=== PATIENT | female | born 1935 | race Caucasian/White ===

== ENCOUNTER 2018-01-28 15:30 | Emergency (ER) | payer MEDICARE, MEDICAID ==
[2018-01-28] MEDS: ALBUTEROL 0.083% (NEB) 2.5 MG/3 ML AMP NEB (16:06)
[2018-01-28] MEDS: IPRATROPIUM (NEB) 0.5 MG/2.5 ML AMP NEB (16:06)
[2018-01-28 16:09] LABS: ADD MAN DIFF? NO
[2018-01-28 16:13] LABS: BASOPHILS % 0.2 % (0.0-2.0); EOSINOPHILS # 0.1 10^3/ul (0.0-0.5); EOSINOPHILS % 0.8 % (0.0-7.0); HEMATOCRIT 34.5 % (37.0-47.0); HEMOGLOBIN 11.1 g/dl (12.0-16.0); LYMPHOCYTES % 21.2 % (15.0-51.0); MEAN CORPUSCULAR HEMOGLOBIN 27.2 pg (29.0-33.0); MEAN CORPUSCULAR HGB CONC 32.2 g/dl (32.0-37.0); MEAN CORPUSCULAR VOLUME 84.6 fl (82.0-101.0); MEAN PLATELET VOLUME 10.7 fl (7.4-10.4); MONOCYTE # 0.9 10^3/ul (0.3-0.9); MONOCYTES % 9.2 % (0.0-11.0); NEUTROPHIL # 6.5 10^3/ul (1.6-7.5); NEUTROPHILS % 68.4 % (39.0-77.0); PLATELET COUNT 277 10^3/UL (140-415); RED BLOOD COUNT 4.08 10^6/ul (4.20-5.40); RED CELL DISTRIBUTION WIDTH 14.1 % (11.5-14.5)
[2018-01-28 16:13] LABS: WHITE BLOOD COUNT 9.5 10^3/ul (4.8-10.8)
[2018-01-28 16:35] LABS: ANION GAP 17 (8-16); BLOOD UREA NITROGEN 23 mg/dl (7-20); CARBON DIOXIDE 25 mmol/L (21-31); CHLORIDE 107 mmol/L (97-110); CREATININE 1.29 mg/dl (0.44-1.00); GLUCOSE 107 mg/dl (70-220); POTASSIUM 5.1 mmol/L (3.5-5.1); SODIUM 144 mmol/L (135-144)
[2018-01-28 16:47] LABS: TROPONIN-I < 0.012 ng/ml (0.00-0.12)
== END 2018-01-28 17:16 | disposition home or self-care (01) ==
LOC: E/R 15:30
DX: J20.9 Acute bronchitis, unspecified (principal); N28.9 Disorder of kidney and ureter, unspecified; I10 Essential (primary) hypertension
CPT/HCPCS: 36415; 71045; 80048; 84484; 85025; 93005; 94664; 99285-25